=== PATIENT | male | born 1945 | race Caucasian/White ===

== ENCOUNTER 2018-10-03 14:00 | Inpatient (IN) | payer OTHER, MEDICARE ==
[~2018-10-03] VITALS: Ht 180.3 cm; Wt 83.9 kg
--- NOTE | ~2018-10-03 | CON ---
[address] [address] CONSULTATION Name: TRE MARIE Room: [address] IN M.R.#: [id number] Admission: 10/03/18 Attend Phys: Prema Day MD Discharge: Date of : 47 Report #: [id number] THIS REPORT FOR: //name// CC: Juhi Day DATE OF SERVICE: 10/04/2018 REASON FOR CONSULT: Choledocholithiasis and abnormal liver enzymes. HISTORY OF PRESENT ILLNESS: This is a 72-year-old male who started having abdominal pain yesterday and told that this may be due to his constipation. He took a laxative and had a bowel movement but his pain did not go away. He subsequently went to clinic since he was having low-grade fever. They told him that his liver enzymes were elevated and he was sent to the hospital for admission. Since hospitalization, he had blood work, which initially showed mild leukocytosis. The bilirubin was above 3 and LFTs were elevated to 3-4 times normal. The patient also had imaging study, which included CT of abdomen and pelvis initially. This was significant for cholelithiasis and some evidence of left colon wall thickening suggestive of colitis. The patient also noted to have enlarged prostate with moderately distended bladder. Ultrasound was done, which showed tiny gallstones within the gallbladder wall and gallbladder wall thickening. There is pericholecystic fluid suggestive of acute cholecystitis. MRCP followed, which showed evidence of choledocholithiasis with a 5 mm distal common bile duct stone. There was no significant intrahepatic bile duct dilatation. There was also a 1 cm hyperintense lesion in the liver adjacent to the gallbladder, which most probably may be significant for a cyst. PAST MEDICAL HISTORY: Significant for history of chronic constipation, colonoscopy 10 years ago, which was negative per patient, dyslipidemia, hypertension, history of tonsillectomy, appendectomy and surgery in the finger. ALLERGIES: Please refer to MAR. MEDICATIONS: Please refer to MAR. SOCIAL HISTORY: The patient is and lives at home. Denies tobacco or alcohol use. FAMILY HISTORY: Negative for GI malignancy. PHYSICAL EXAMINATION: VITAL SIGNS: Reveals blood pressure of 112/52, respiration 18, pulse 59 and temperature 98.2. LUNGS: Clear. CARDIOVASCULAR: [place] [address] CONSULTATION Name: TRE MARIE Room: [address] IN [facility]#: [id number] Admission: 10/03/18 Attend Phys: Prema Day MD Discharge: Date of : 47 Report #: [id number] ABDOMEN: Soft, nontender and nondistended. Bowel sounds are positive. LABORATORY DATA: Sodium is 138, potassium 4.6, BUN is 12, creatinine 1.2 and glucose 97. AST 123; ALT 299; alkaline phosphatase 170 and total bilirubin is 2.6, down from 3.6. WBC is 10.8, down from 11.7 with hemoglobin of 13.8 and platelets of 186. IMAGING DATA: As discussed above. ASSESSMENT AND PLAN: The patient with a history of chronic constipation, who presents with abdominal pain and CT evidence of thickening of the left colon. He has not had a colonoscopy, so he will need a colonoscopy in the near future. He also found to have elevated liver enzymes with choledocholithiasis and cholecystitis. We will go ahead and perform an ERCP with stone removal. The patient subsequently will have a gallbladder surgery and colonoscopy. By: [id number] Corbett MD /farrukh
--- NOTE | ~2018-10-03 | PROC ---
[address] [address] PROCEDURE REPORT Name: TRE MARIE Room: [address] IN .R.#: [id number] Admission: 10/03/18 Attend Phys: Prema Day MD Discharge: 10/05/18 Date of : 47 Report #: [id number] THIS REPORT FOR: //name// For GI report, Please see the Provation report in Perceptive 7 content. By: 1218Medical Records Staff JOYCE /BRITTNEY
[2018-10-03 14:06] VITALS: BP 131/60
[2018-10-03] MEDS ORDERED: LOSARTAN POTAS100 MG PO (14:09)
[2018-10-03] MEDS ORDERED: UNICOMPLEX M TA1 TA1 PO (14:09)
[2018-10-03] MEDS ORDERED: FISH OIL 1,001000 M2 PO (14:09)
[2018-10-03] MEDS ORDERED: HYDROCHLOROTH12.5 M1 PO (14:09)
[2018-10-03] MEDS ORDERED: LIPITOR10 MG PO (14:09)
[2018-10-03 14:25] LABS: HEMATOCRIT 42.6 % (42.0-52.0); HEMOGLOBIN 14.5 gm/dL (14.0-18.0); MCH 30.9 pg (26.0-34.0); MCV 90.7 fL (80.0-100.0); MPV 7.3 fl. (7.2-11.1); NUCLEATED RBCS 0 /100WBC; PLATELET COUNT* 198 thou/uL (150-400); RBC 4.69 mil/uL (4.50-6.00); RDW-CV 13.4 % (10.5-14.5); WBC 11.7 thou/uL (4.0-11.0)
[2018-10-03 14:44] LABS: ABSOLUTE LYMPHOCYTES 0.4 thou/uL (0.8-5.3); ABSOLUTE MONOCYTES 0.4 thou/uL (0.0-1.2); PLATELET ESTIMATE ADEQUATE
[2018-10-03 14:46] LABS: TROPONIN-I LEVEL <0.06 ng/mL (<0.06)
[2018-10-03 14:50] LABS: CALCIUM 8.5 mg/dL (8.5-10.1); CREATININE 1.3 mg/dL (0.6-1.3)
[2018-10-03 14:51] LABS: POTASSIUM 2.9 mmol/L (3.5-5.1)
[2018-10-03 14:51] LABS: URINE BILIRUBIN NEGATIVE (Negative); URINE BLOOD NEGATIVE (Negative); URINE CLARITY CLEAR; URINE COLOR YELLOW; URINE GLUCOSE-RANDOM NEGATIVE (Negative); URINE KETONES NEGATIVE (Negative); URINE LEUKOCYTES-REFLEX NEGATIVE (Negative); URINE NITRITE-REFLEX NEGATIVE (Negative); URINE PROTEIN NEGATIVE (Negative)
[2018-10-03 14:54] LABS: ALBUMIN 3.6 g/dL (3.4-5.0); TOTAL BILIRUBIN 3.6 mg/dL (<0.1-1.0); TOTAL PROTEIN 6.8 g/dL (6.4-8.2)
--- NOTE | 2018-10-03 16:48 | EKG ---
[place] [address] ELECTROCARDIOGRAM REPORT Name: TRE MARIE Room: [facility]#: [id number] Admission: 10/03/18 Attend Phys: Discharge: Date of : 47 Report #: [id number] THIS REPORT FOR: //name// [facility] ED Test Date: 2018-10-03 Test Time: 14:16:32 Pat Name: TRE CYNTHIA Department: Room: Gender: Skein Yarn Dyer: Robert SANTOS : 1945 Requested By: Rosa Diaz Order Number: [id number] MD: Chris Leal Measurements Intervals [place] Rate: 107 P: 36 DC: 163 QRS: 39 QRSD: 95 T: 5 QT: 328 QTc: 438 Interpretive Statements Sinus tachycardia No previous ECG available for comparison Electronically Signed On 10-03-2018 16:48:20 SENIOR CLINICAL CONSULTANT by Chris Leal [email or web address] <ELECTRONICALLY SIGNED> By: Chris Leal MD, [facility] 10/03/18 1648 1416 1416 Chris Leal MD, FACC /EPI
[2018-10-03 18:08] VITALS: BP 106/53
[2018-10-03 20:00] VITALS: BP 97/55
[2018-10-04 00:23] VITALS: BP 107/45
--- NOTE | 2018-10-04 05:15 | NUR ---
PT ADMITTED TO FLOOR CHARTED FOR SUSPECTED COLITIS. GI AND GENERAL SURGERY CONSULTS HAVE BEEN ENTERED. PT IS AT 100% O2 ON ROOM AIR AND IS AXO X4. UP AD MIMA. PT DID NOT REPORT N/V THROUGHOUT SHIFT BUT STATES HE VOMITED TWICE YESTERDAY. NPO AT MIDNIGHT. FALL RISK PRECAUTIONS IN PLACE CHARTED. HOURLY ROUNDING COMPLETED. WILL CONTINUE TO MONITOR.
[2018-10-04 05:20] LABS: HEMATOCRIT 40.8 % (42.0-52.0); HEMOGLOBIN 13.8 gm/dL (14.0-18.0); MCHC 33.8 g/dL (28.0-37.0); MCV 91.9 fL (80.0-100.0); MPV 7.9 fl. (7.2-11.1); RBC 4.43 mil/uL (4.50-6.00); RDW-CV 13.7 % (10.5-14.5); WBC 10.8 thou/uL (4.0-11.0)
[2018-10-04 05:41] LABS: ALBUMIN 3.1 g/dL (3.4-5.0); CALCIUM 8.2 mg/dL (8.5-10.1); CREATININE 1.2 mg/dL (0.6-1.3); MAGNESIUM 2.2 mg/dL (1.8-2.4); TOTAL BILIRUBIN 2.6 mg/dL (<0.1-1.0)
[2018-10-04 05:43] LABS: POTASSIUM 4.6 mmol/L (3.5-5.1)
[2018-10-04 08:12] VITALS: BP 112/52
--- NOTE | 2018-10-04 11:43 | NUR ---
PT.SITTING UP IN BED USING HIS LAPTOP COMPUTER. HE SAID HE FELT MUCH BETTER THAN WHEN HE CAME IN. HE LIVES WITH HIS . HE DOES NOT USE ANY DME. HE IS INDEPENDENT AND ACTIVE AND CONTINUES TO WORK. NO DISCHARGE NEEDS IDENTIFIED.
--- NOTE | 2018-10-04 12:06 | NUR ---
Nutrition: Pt admitted with abd pain. Seen for nsg risk 2 points. Pt is currently NPO. Has gallstones, cholecystitis. H/o HTN, colitis. Albumin 3.1. Pt stated he feels much better. Please advance diet to goal of Low Fat once pt is clinically able. Mild to low risk.
[2018-10-04 15:46] VITALS: BP 112/52
[2018-10-04 16:30] VITALS: BP 129/70
--- NOTE | 2018-10-04 16:57 | NUR ---
PT SENT DOWN TO PACU FOR ERCP. PT BELONGINGS GATHERED IN ROOM IN FRONT OF PT AND SPOUSE. BELONINGS BROUGHT UP TO ROOM 307. PT AND SPOUSE NOTIFIED OF NEW ROOM NUMBER. CONSENT FORM SIGNED. PRE OP CHECKLIST COMPLETED.HOURLY ROUNDING COMPLETED.
[2018-10-04 16:59] VITALS: BP 112/52
--- NOTE | 2018-10-04 17:00 | NUR ---
REVIEWED AND AGREE WITH ALL CHARTING AND ASSESSMENTS COMPLETED BY NERY Adams RN
--- NOTE | 2018-10-04 18:07 | NUR ---
PT REMAINED ALERT AND ORIENTED THIS SHIFT. PT REMAINED NPO. AFTER MRCP, 5MM GALLSTONE FOUND IN GALLBLADDER DUCT. ERCP SCHDULED TODAY, SENT DOWN TO PACU WITH CHART AT AROUND 1630. PT HAS NOT RETURNED BACK FROM PACU AT THIS TIME. IF GI GIVES OK FOR DISCHARGE PT CAN LEAVE TONIGHT. DISCHARGE ORDERS PLACED IN BY DR. CHOUDHURY. HOURLY ROUNDING COMPLETED. WILL CONTINUE TO MONITOR.
[2018-10-04 19:37] VITALS: BP 134/63
--- NOTE | 2018-10-04 22:55 | NUR ---
193 RETURNED FROM PACU BY BED IN STABLE CONDITION. ORIENTED TO ROOM AND ROUTINE. IVF'S RESUMED TO RIGHT AC IV SITE. SCD'S IN PLACE. CAPNOGRAPHY PLACED BY PACU. NAUSEA WITHOUT EMESIS ON ARRIVAL. PACU NURSE PROVIDING ANYI IV PHENERGAN. DENIES ANY PAIN. VITAL SIGNS STABLE. CURRENTLY RESTING QUIETLY WITH EYES CLOSED. CONTINUE TO MONITOR.
[2018-10-05] VITALS: BP 113/62
[2018-10-05 04:00] VITALS: BP 133/61
[2018-10-05 04:52] LABS: HEMATOCRIT 41.3 % (42.0-52.0); HEMOGLOBIN 13.8 gm/dL (14.0-18.0); MCH 30.9 pg (26.0-34.0); MCHC 33.4 g/dL (28.0-37.0); MCV 92.3 fL (80.0-100.0); MPV 8.4 fl. (7.2-11.1); RBC 4.47 mil/uL (4.50-6.00); RDW-CV 13.8 % (10.5-14.5); WBC 6.4 thou/uL (4.0-11.0)
--- NOTE | 2018-10-05 05:08 | NUR ---
PATIENT HAS REMAINED ALERT AND ORIENTED X 4 THROUGHOUT THE SHIFT. STATED FELT A BIT SPACEY ON ARRIVAL AFTER PHENERGAN. NO FURTHER NAUSEA. CLEAR LIQUIDS OVERNIGHT. WAS ABLE TO STAY ON ROOM AIR WITH O2 SATS >92% AND CO2 WITHIN NORMAL LIMITS. PATIENT HAS DENIED ANY PAIN. UP TO BR SBA TO VOID SEVERAL TIMES POST-OP. VITAL SIGNS STABLE. CONTINUE TO MONITOR.
[2018-10-05 05:09] LABS: ALBUMIN 2.9 g/dL (3.4-5.0); CALCIUM 8.4 mg/dL (8.5-10.1); CREATININE 1.1 mg/dL (0.6-1.3); MAGNESIUM 2.2 mg/dL (1.8-2.4); POTASSIUM 4.9 mmol/L (3.5-5.1); TOTAL BILIRUBIN 0.9 mg/dL (<0.1-1.0)
[2018-10-05 09:26] VITALS: BP 118/65
[2018-10-05 09:58] VITALS: BP 112/52
[2018-10-05] MEDS ORDERED: NORCO 5-325 TA1 EACH PO (10:09)
[2018-10-05] MEDS ORDERED: CIPRO500 MG PO (10:11)
[2018-10-05] MEDS ORDERED: FLAGYL500 M1 PO (10:12)
[2018-10-05 11:06] VITALS: BP 112/52
--- NOTE | 2018-10-05 11:07 | NUR ---
PATIENT HAS BEEN ALERT AND ORIENTED TODAY VERY PLEASANT. UP AD MIMA IN ROOM AND AMBULATING IN THE HALLWAYS. VITAL SIGNS STABLE ON ROOM AIR. NO COMPLAINTS OF ANY KIND TODAY. PATIENT IS BEING DISCHARGED TO HOME, DISCHARGE INSTRUCTIONS AND PRESCRIPTIONS GIVEN, QUESTIONS ANSWERED FOR PATIENT. AMBULATED OUT WITH NURSING STAFF TO HOME WITH .
== END 2018-10-05 11:10 | disposition home or self-care (01) | DRG 446 ==
LOC: M.ERS 14:00 → M.ORTHSURG 17:28 → M.TBA-ER 17:28 → M.ORTHSURG 17:36 → M.3W 10-04 16:52
PROVIDERS: Nurse Practitioner Family; Surgery; ADMIT Internal Medicine
PROC: 0FC98ZZ Extirpation of Matter from Common Bile Duct, Via Natural or Artificial Opening Endoscopic (ICD-10-PCS; principal; 2018-10-04)
DX: K80.62 Calculus of gallbladder and bile duct with acute cholecystitis without obstruction (principal); I10 Essential (primary) hypertension; K52.9 Noninfective gastroenteritis and colitis, unspecified; E87.6 Hypokalemia; K59.09 Other constipation; E78.00 Pure hypercholesterolemia, unspecified; Z90.49 Acquired absence of other specified parts of digestive tract; Z79.899 Other long term (current) drug therapy; Z82.3 Family history of stroke; Z82.5 Family history of asthma and other chronic lower respiratory diseases; Z82.49 Family history of ischemic heart disease and other diseases of the circulatory system

== ENCOUNTER → 2020-08-11 | Outpatient (CLI) | payer OTHER, MEDICARE ==
[~2020-08-11] MED LIST: CIPRO500 MG PO; FISH OIL 1,001000 M2 PO; FLAGYL500 M1 PO; FLOMAX0.4 MG PO; HYDROCHLOROTH12.5 M1 PO; LIPITOR10 MG PO; LOSARTAN POTAS100 MG PO; NORCO 5-325 TA1 EACH PO; ROXICODONE5 M2 PO; UNICOMPLEX M TA1 TA1 PO
== END ==
LOC: M.LAB 08:13
PROVIDERS: ATTEND Surgery
DX: Z01.812 Encounter for preprocedural laboratory examination (principal); Z20.828 Contact with and (suspected) exposure to other viral communicable diseases; K80.20 Calculus of gallbladder without cholecystitis without obstruction

== ENCOUNTER → 2020-08-14 | Day surgery (SDC) | payer OTHER, MEDICARE ==
[2020-08-14 11:26] LABS: HEMATOCRIT 41.7 % (42.0-52.0); HEMOGLOBIN 14.7 gm/dL (14.0-18.0); MCH 31.9 pg (26.0-34.0); MCHC 35.3 g/dL (28.0-37.0); MCV 90.4 fL (80.0-100.0); MPV 7.1 fl. (7.2-11.1); RBC 4.62 mil/uL (4.50-6.00); RDW-CV 13.2 % (10.5-14.5); WBC 6.7 thou/uL (4.0-11.0)
[2020-08-14 11:35] LABS: CALCIUM 8.7 mg/dL (8.5-10.1); CREATININE 1.3 mg/dL (0.6-1.3); POTASSIUM 3.4 mmol/L (3.5-5.1)
--- NOTE | 2020-08-14 16:22 | EKG ---
[place] [address] ELECTROCARDIOGRAM REPORT Name: TRE MARIE Room: [facility]#: [id number] Admission: 08/14/20 Attend Phys: Asmita Wilson, Discharge: Date of : 47 Date of Service: 08/14/20 1111 Report #: [id number] THIS REPORT FOR: //name// [facility] Test Date: 2020-08-14 Test Time: 11:11:47 Pat Name: TRE MARIE Department: Room: Gender: Torpedo Shooter: : 1945 Requested By: Asmita Wilson Order Number: [id number] Elissa MD: Carlos Grove Measurements Intervals [place] Rate: 60 P: 45 DE: 195 QRS: 36 QRSD: 95 T: 6 QT: 426 QTc: 426 Interpretive Statements Sinus rhythm Compared to ECG 10/03/2018 14:16:32 Sinus tachycardia no longer present Electronically Signed On 08-14-2020 16:22:23 CDT by Carlos Grove [email or web address] <ELECTRONICALLY SIGNED> By: Carlos Grove MD, [facility] 08/14/20 1622 1111 1111 Carlos Grove MD, FACC /EPI
--- NOTE | 2020-08-18 10:54 | OP ---
[address] [address] OPERATIVE REPORT Name: TRE MARIE Room: [facility]#: [id number] Admission: 08/14/20 Attend Phys: Asmita Wilson DO Discharge: Date of : 47 Report #: [id number] THIS REPORT FOR: //name// cc: Juhi Paz MD, Cabot L. MD ~ CC: Juhi Wilson DICTATED BY: Felice Scruggs DO DATE OF SERVICE: 08/14/2020 PREOPERATIVE DIAGNOSES: Cholelithiasis, history of choledocholithiasis. POSTOPERATIVE DIAGNOSES: Cholelithiasis, history of choledocholithiasis with addition of incarcerated incisional hernia. SURGEON: Asmita Wilson DO. CO-SURGEON: Felice Scruggs, PGY5. TECHNICAL SUPPORT SPECIALIST: Uma Castillo OPERATION PERFORMED: Laparoscopic cholecystectomy with intraoperative cholangiogram in the surgeon interpretation of images and primary repair of incarcerated umbilical incisional hernia. FINDINGS: Cystic duct was driving from the right hepatic duct, patent cystic duct, right and left hepatic ducts, common hepatic ducts and common bile duct, prompt filling of the duodenum and incisional hernia containing incarcerated omental fat. ANESTHESIA: General, local and bilateral transversus abdominis plane blocks. ESTIMATED BLOOD LOSS: 5. SPECIMEN: Gallbladder and hernia sac. COMPLICATIONS: None. INDICATIONS: The patient is a 74-year-old male returned to clinic after a hospitalization 2 years ago where he was treated for cholecystitis and choledocholithiasis. He underwent an ERCP with sphincterotomy and stone retrieval but did not follow up for interval cholecystectomy. He was informed of the risks and benefits of laparoscopic cholecystectomy [place] [address] OPERATIVE REPORT Name: TRE MARIE Room: [facility].#: [id number] Admission: 08/14/20 Attend Phys: Asmita Wilson DO Discharge: Date of : 47 Report #: [id number] but not limited to bleeding, infection, bowel injury, bile duct injury, need for reoperation, hernia formation, and chronic diarrhea. He understood the risks and decided to proceed with surgery. DESCRIPTION OF PROCEDURE: After informed consent was obtained, the patient was brought to the operating room and placed in supine position. SCDs were on and running. Preoperative antibiotics were given. General anesthesia was administered with an ET tube. Bilateral transversus abdominis plane blocks were placed by Anesthesia. The patient was prepped and draped in the usual sterile fashion. A surgical pause was held to confirm proper patient and procedure. Infraumbilical incision was made with an 11 blade after local infiltration. Dissection was carried down into the hernia sac that was palpated. This was circumferentially dissected until it was free from the surrounding fascial tissue. This was reduced into the preperitoneal space. The fascial edges were grasped with a Jesse. The peritoneum was bluntly entered using a Emely. The fascial defect was extended using cautery until a finger could be introduced into the abdomen to confirm intraperitoneal location. A stay suture was placed on either side of the fascia using 0 Vicryl. The Jono trocar was introduced. The abdomen was insufflated. The patient was positioned head up, right side up. A 5 mm port was placed in the epigastrium under direct visualization and two additional ports in the right upper quadrant were placed under direct visualization, both 5 mm in size. The gallbladder was visualized and elevated over the liver. There were some thin adhesions to omentum at Torsten's pouch. These were taken down using cautery. The peritoneum overlying the hepatocystic triangle was incised using cautery. This plane was developed laterally as well as medially. Blunt dissection was then used to circumferentially dissect the cystic duct and the cystic artery. The lymph node was noted directly over the cystic artery. This was reflected superiorly to be a part of the specimen. Once the cystic duct and cystic artery were dissected, the Estes clamp was introduced and grasped across Torsten's pouch. The catheter was introduced through the clamp and into the cystic duct. A cholangiogram was then performed. There was prompt filling of the cystic duct, which was derived from the right hepatic duct rather than the common bile duct. There was some mild filling dilation of the right and left hepatic ducts, but there was a normal size of the common bile duct and prompt filling of the duodenum. There were no filling defects. At this point, the Estes clamp was unclamped and the catheter was removed. The 5 mm clips were then placed across the cystic duct x 2 and one distally. The cystic artery was singly clamped proximally and distally. Laparoscopic scissors were used to divide both and the gallbladder was then elevated and dissected free from the liver bed. The gallbladder was completely excised from the liver bed using cautery and placed within an EndoCatch bag and placed aside. Liver bed was inspected and was hemostatic. The right upper quadrant was thoroughly irrigated and suctioned until the effluent was clear. The clips were inspected and hemostatic. There was no bile leak. The ports were removed under direct visualization. Abdomen was desufflated. Specimen was removed. The specimen was inspected and sajan [place] [address] OPERATIVE REPORT Name: TRE MARIE Room: [facility]#: [id number] Admission: 08/14/20 Attend Phys: Asmita Wilson DO Discharge: Date of : 47 Report #: [id number] gallbladder. The previous stay sutures were elevated and replaced with Kochers. A single [id number] using 0 Vicryl was used to close the fascial defect of the hernia. This wound was closed in layered fashion using 3-0 Vicryl, 4-0 Monocryl and remainder of skin was closed using 4-0 Monocryl. Wounds were cleansed and dressed with Dermabond. All counts were correct. The patient was emerged from anesthesia and transferred to the PACU in stable condition. <ELECTRONICALLY SIGNED> By: Asmita Wilson DO 08/18/20 1054 1409 1437Chsocrates Wilson DO /nt
--- NOTE | 2020-08-18 16:06 | PATH ---
[facility] [address] [place] [address] PATHOLOGY RPT PROCEDURE Name: RTE MARIE Room: [facility]#: [id number] Admission: 08/14/20 Date of : 47 Discharge: Report #: [id number] Path Case #: [id number] [facility] Accession Number: [id number] . 01 Material submitted: . hernia - HERNIA SAC AND CONTENTS . 01 Clinical history: . UMBILICAL HERNIA . 01 Frozen section diagnosis: . . /QMS . 02 Diagnosis: Hernia sac and contents: - Benign fibrofatty tissue. (KIANA:john; 08/18/2020) QMS 08/18/2020 1442 Local . 02 Electronically signed: . Gearrdo Luis MD, Pathologist NPI- [id number] . 01 Gross description: . The specimen is received in formalin, labeled "Arya Parr, hernia sac and contents". Received is a segment of fibroadipose tissue with a slight amount of attached fibromembranous tissue measuring 3.6 x 2.3 x 1.1 cm in greatest dimensions. No distinct nodules or lesions are noted grossly. The specimen is submitted representatively in cassette A1. (CAA; 08/15/2020) QAC/QAC 08/15/2020 1519 Local . 02 Microscopic: . . . 02 Pathologist provided ICD-10: K42.9 . 02 CPT . 226975 Specimen Comment: A courtesy copy of this report has been sent to [phone] Specimen Comment: [phone] Specimen Comment: Report sent to / DR ENGLISH Performed at: [address] [id number] [address] [address] PATHOLOGY RPT PROCEDURE Name: TRE MARIE Room: [facility]#: [id number] Admission: 08/14/20 Date of : 47 Discharge: Report #: [id number] Path Case #: [id number] MD Steve Chand MD Phone: [phone] Performed at: 02 [facility] [address] [place], [place] [id number] MD Gerardo Luis MD Phone: [phone]
--- NOTE | 2020-08-19 15:10 | PATH ---
[facility] [address] [place] [address] PATHOLOGY RPT PROCEDURE Name: TRE BRADEN Room: [facility]#: [id number] Admission: 08/14/20 Date of : 47 Discharge: Report #: [id number] Path Case #: [id number] [facility] Accession Number: [id number] . 01 Material submitted: . gallbladder - GALLBLADDER AND CONTENTS . 01 Clinical history: . CHOLELITHIASIS . 02 Diagnosis: Gallbladder and contents: - Chronic cholecystitis, cholesterolosis, and cholelithiasis. (KIANA:pit 08/19/2020) QTP 08/19/2020 1037 Local . 02 Electronically signed: . Gerardo Luis MD, Pathologist NPI- [id number] . 01 Gross description: . The specimen is received in formalin, labeled "Tre Braden, gallbladder and contents". Received is a previously punctured gallbladder measuring 7.4 x 2.9 x 1.9 cm in greatest dimensions displaying a pink-mcguire serosal surface. Opening the specimen reveals a velvety, light rodríguez mucosa with a gallbladder wall thickness of 0.1 cm. Calculi are present displaying a light brown and nodular appearance, and no masses or lesions are noted grossly. Fermenter sections, to include the proximal margin, are submitted in cassette A1. (CAA; 08/15/2020) QA/QA 08/15/2020 1139 Local . 02 Pathologist provided ICD-10: K80.10, K82.4 . 02 CPT . 956671 Specimen Comment: A courtesy copy of this report has been sent to [phone] Specimen Comment: [phone] Specimen Comment: Report sent to / DR SCHMITT Performed at: [address] [facility] [address] [id number] MD Steve Chand MD Phone: [phone] Performed at: [address] [id number] [place] [address] PATHOLOGY RPT PROCEDURE Name: TRE BRADEN Room: [facility]..#: [id number] Admission: 08/14/20 Date of : 47 Discharge: Report #: [id number] Path Case #: [id number] MD Gerardo Luis MD Phone: [phone]
== END | disposition home or self-care (01) ==
LOC: M.SUR 09:57
PROVIDERS: ATTEND Surgery
DX: K80.10 Calculus of gallbladder with chronic cholecystitis without obstruction (principal); K43.0 Incisional hernia with obstruction, without gangrene; I10 Essential (primary) hypertension; E78.5 Hyperlipidemia, unspecified; Z79.899 Other long term (current) drug therapy; Z98.890 Other specified postprocedural states; Z90.49 Acquired absence of other specified parts of digestive tract

== ENCOUNTER 2020-08-27 19:47 | Emergency (ER) | payer OTHER, MEDICARE ==
[~2020-08-27] VITALS: Ht 180.3 cm; Wt 84.4 kg
[2020-08-27 20:19] LABS: ABSOLUTE BASOPHILS 0.1 thou/uL (0.0-0.2); ABSOLUTE EOSINOPHILS 0.3 thou/uL (0.0-0.7); ABSOLUTE LYMPHOCYTES 1.5 thou/uL (0.8-5.3); ABSOLUTE MONOCYTES 0.7 thou/uL (0.0-1.2); ABSOLUTE NEUTROPHILS 5.4 thou/uL (1.6-8.1); BASOPHILS 1.7 %; EOSINOPHILS 3.3 %; HEMATOCRIT 37.9 % (42.0-52.0); LYMPHOCYTES 19.2 %; MCH 30.4 pg (26.0-34.0); MCHC 34.2 g/dL (28.0-37.0); MCV 89.1 fL (80.0-100.0); MONOCYTES 8.8 %; MPV 6.2 fl. (7.2-11.1); NUCLEATED RBCS 0 /100WBC; PLATELET COUNT* 457 thou/uL (150-400); RBC 4.26 mil/uL (4.50-6.00); RDW-CV 13.5 % (10.5-14.5)
[2020-08-27 20:28] LABS: CREATININE 1.3 mg/dL (0.6-1.3)
[2020-08-27 20:30] LABS: POTASSIUM 2.8 mmol/L (3.5-5.1)
[2020-08-27 20:57] LABS: URINE BILIRUBIN NEGATIVE (Negative); URINE BLOOD 3+ (Negative); URINE CLARITY CLOUDY; URINE COLOR RED; URINE GLUCOSE-RANDOM NEGATIVE (Negative); URINE KETONES NEGATIVE (Negative); URINE LEUKOCYTES-REFLEX TRACE (Negative); URINE NITRITE-REFLEX NEGATIVE (Negative); URINE PROTEIN 2+ (Negative); URINE SPECIFIC GRAVITY 1.015 (1.005-1.030); URINE UROBILINOGEN 0.2 E.U./dl (0.2-1.0)
[2020-08-27 21:08] LABS: MUCUS None Seen strn/LPF (None Seen); SQUAMOUS 0-3 Few /LPF (0-3); URINE RBC >20 Many /HPF (0-2)
[2020-08-27 21:09] LABS: URINE WBC-REFLEX 0-5 Rare /HPF (0-5)
[2020-08-27 21:10] LABS: BACTERIA-REFLEX None Seen /HPF (None Seen); CRYSTALS None Seen /LPF (None Seen); HYALINE CASTS 0-3 Few /LPF (None Seen)
[2020-08-27 21:15] VITALS: BP 127/58
== END 2020-08-27 21:15 | disposition home or self-care (01) ==
LOC: M.ERS 19:47
PROVIDERS: Nurse Practitioner Family; Personal Emergency Response Attendant
DX: R31.9 Hematuria, unspecified (principal); E87.6 Hypokalemia; I10 Essential (primary) hypertension; E78.5 Hyperlipidemia, unspecified; Z90.89 Acquired absence of other organs; Z90.49 Acquired absence of other specified parts of digestive tract